=== PATIENT | female | born 1945 | race Hispanic/Latino ===

== ENCOUNTER 2019-04-25 13:27 | Emergency (ER) | payer OTHER, MEDICARE ==
[2019-04-25] MEDS ORDERED: LORAZEPAM 0.5 MG TABLET ONE (14:22)
== END 2019-04-25 15:03 | disposition home or self-care (01) ==
LOC: EDH 13:27
DX: I10 Essential (primary) hypertension (principal); E11.9 Type 2 diabetes mellitus without complications
CPT/HCPCS: 93922

== ENCOUNTER → 2019-04-25 | Outpatient (CLI) | payer OTHER, MEDICARE | END | disposition home or self-care (01) | LOC: RAH 04-21 13:09 | PROVIDERS: ATTEND Internal Medicine Cardiovascular Disease | DX: I73.9 Peripheral vascular disease, unspecified (principal); R03.0 Elevated blood-pressure reading, without diagnosis of hypertension | CPT/HCPCS: 93922 ==